=== PATIENT | female | born 1985 | race Caucasian/White ===

== ENCOUNTER → 2019-03-07 | Outpatient (CLI) | payer BC, MEDICAID ==
[~2019-03-07] MED LIST: FERR325C2 PO; IBU800 PO; PER PO; PREN-67 PO
--- NOTE | 2019-03-09 14:12 | RADIOLOGY IMAGING REPORT ---
FACILITY: [facility] [place] PATIENT NAME: SOFIYA COLBERT : [id number] MR: [id number] V: [id number] EXAM DATE: ORDERING PHYSICIAN: CYNDI MASON TECHNOLOGIST: Chica Ruiz PROCEDURE:BILATERAL DIAGNOSTIC DIGITAL MAMMOGRAM WITH CAD ASSISTED INTERPRETATION & 3D TOMOSYNTHESIS REASON FOR STUDY: Right breast pain x 2 years adjacent to the Right nipple FAMILY HISTORY OF BREAST CANCER: None BREAST PROCEDURES/TREATMENTS: None COMPARISON STUDIES: None MAMMOGRAM VIEWS OBTAINED: Right & Left bilateral 2D & 3D full field CC & MLO views BREAST DENSITY: The breasts are heterogeneously dense which can obscure small masses. MAMMOGRAM FINDINGS: There is no demonstration of dominant mass or malignant appearing calcifications in either breast. ULTRASOUND AREA SCANNED: Right breast was imaged in the 12-3 o'clock position in location of patient's pain. There is a small cluster of microcysts in the 1 o'clock position of the Right breast 2cm from the nipple collectively measuring 8.3 x 6.4 x 4mm. Also in the 1 o'clock position of the Right breast 1cm from the nipple is a 4.5mm cyst. Also in the 1 o'clock position of the Right breast 1cm from the nipple is a 6mm cyst with a small septation. In the 2 o'clock position of the Right breast 1cm from the nipple is a small cluster of cysts collectively measuring 6mm. ULTRASOUND IMPRESSION: BIRADS 2: Benign finding. There are multiple small cysts identified in the 1 & 2 o'clock position of the Right breast. Clinical follow up recommended for patient's Right breast pain. FINDINGS: DIAGNOSTIC CATEGORY 2--BENIGN FINDING. RECOMMENDATIONS: CLINICAL EVALUATION. Dictated by: Velma Cortes M.D. on 03/07/2019 at 15:49 Transcribed by: JOVAN on 03/09/2019 at 11:54 Approved by: Velma Cortes M.D. on 03/09/2019 at 14:11 [facility]
--- NOTE | 2019-03-09 14:13 | RADIOLOGY IMAGING REPORT ---
FACILITY: [facility] PATIENT NAME: SOFIYA COLBERT : [id number] MR: [id number] V: [id number] EXAM DATE: ORDERING PHYSICIAN: CYNDI MASON TECHNOLOGIST: Anh Martinez RDMS PROCEDURE:BILATERAL DIAGNOSTIC DIGITAL MAMMOGRAM WITH CAD ASSISTED INTERPRETATION & 3D TOMOSYNTHESIS REASON FOR STUDY: Right breast pain x 2 years adjacent to the Right nipple FAMILY HISTORY OF BREAST CANCER: None BREAST PROCEDURES/TREATMENTS: None COMPARISON STUDIES: None MAMMOGRAM VIEWS OBTAINED: Right & Left bilateral 2D & 3D full field CC & MLO views BREAST DENSITY: The breasts are heterogeneously dense which can obscure small masses. MAMMOGRAM FINDINGS: There is no demonstration of dominant mass or malignant appearing calcifications in either breast. ULTRASOUND AREA SCANNED: Right breast was imaged in the 12-3 o'clock position in location of patient's pain. There is a small cluster of microcysts in the 1 o'clock position of the Right breast 2cm from the nipple collectively measuring 8.3 x 6.4 x 4mm. Also in the 1 o'clock position of the Right breast 1cm from the nipple is a 4.5mm cyst. Also in the 1 o'clock position of the Right breast 1cm from the nipple is a 6mm cyst with a small septation. In the 2 o'clock position of the Right breast 1cm from the nipple is a small cluster of cysts collectively measuring 6mm. ULTRASOUND IMPRESSION: BIRADS 2: Benign finding. There are multiple small cysts identified in the 1 & 2 o'clock position of the Right breast. Clinical follow up recommended for patient's Right breast pain. FINDINGS: DIAGNOSTIC CATEGORY 2--BENIGN FINDING. RECOMMENDATIONS: CLINICAL EVALUATION. Dictated by: Velma Cortes M.D. on 03/07/2019 at 15:49 Transcribed by: JOVAN on 03/09/2019 at 11:54 Dictated by: Velma Cortes M.D. on 03/07/2019 at 15:50 Approved by: Velma Cortes M.D. on 03/09/2019 at 14:11 [facility]
== END ==
LOC: MAMO 00:56
PROVIDERS: ATTEND Nurse Practitioner Family
DX: N64.4 Mastodynia (principal)
CPT/HCPCS: 77062; 77066